=== PATIENT | female | born 1980 ===

== ENCOUNTER 2016-08-13 23:48 | Emergency (ER) | payer OTHER ==
[2016-08-14 00:06] VITALS: BMI 26.6
--- NOTE | 2016-08-14 00:09 | ED PDOC ---
Arrival/HPI - General Time Seen by Provider: 08/14/16 00:05 Historian: Patient - History of Present Illness Narrative History of Present Illness (Text): 08/14/16 00:05 This 36 yo female presents to this ED c/o right middle finger injury x [employer]. Patient stated during her working hours, her finger accidentally got caught in between a machine metal chain. She felt her finger made a "cracking sound". Last tetanus was 1 year ago. patient is right hand dominant. Denies other complains. Time/Duration: Prior to Arrival Quality: Aching Context: Home Past Medical History - Provider Review Nursing Documentation Reviewed: Yes Family/Social History - Physician Review Nursing Documentation Reviewed: Yes Family/Social History: No Known Family HX Allergies/Home Meds Allergies/Adverse Reactions: Allergies No Known Allergies Allergy (Verified 08/14/16 00:05) Review of Systems - Review of Systems Constitutional: Normal. absent: Fatigue, Weight Change, Fevers Eyes: Normal ENT: Normal Respiratory: Normal. absent: SOB, Cough Cardiovascular: Normal. absent: Chest Pain, Palpitations Gastrointestinal: Normal. absent: Abdominal Pain, Nausea, Vomiting Genitourinary Female: Normal. absent: Dysuria, Hematuria Musculoskeletal: Other (right middle finger injury) Skin: Normal Neurological: Normal Endocrine: Normal Hemo/Lymphatic: Normal Psychiatric: Normal Physical Exam Vital Signs Temp Pulse Resp BP Pulse Ox 08/14/16 00:13 98.7 F 74 17 109/70 100 Temperature: Afebrile Blood Pressure: Normal Pulse: Regular Respiratory Rate: Normal Appearance: Positive for: Well-Appearing, Non-Toxic, Comfortable Pain Distress: None Mental Status: Positive for: Alert and Oriented X 3 - Systems Exam Head: Present: Atraumatic, Normocephalic Pupils: Present: PERRL Extroacular Muscles: Present: EOMI Conjunctiva: Present: Normal Mouth: Present: Moist Mucous Membranes Neck: Present: Normal Range of Motion Upper Extremity: Present: NORMAL PULSES, Tenderness, Neurovascularly Intact, Capillary Refill < 2s, Other ((+) abrassion noted at mid rt 3rd finger). No: Cyanosis, Edema Lower Extremity: Present: Normal Inspection, CALF TENDERNESS, NORMAL PULSES, Normal ROM, Neurovascularly Intact, Capillary Refill < 2 s Neurological: Present: GCS=15, CN II-XII Intact, Speech Normal, Motor Func Grossly Intact, Normal Sensory Function, Normal Cerebellar Funct, Gait Normal Skin: Present: Warm, Dry, Normal Color. No: Rashes Psychiatric: Present: Alert, Oriented x 3 Medical Decision Making ED Course and Treatment: Re-evaluation. Patient feels better. Discussed results and plan with patient who expresses understanding. All questions answered and there is agreement with the plan to discharge home with instructions. Patient stable for discharge. Return if symptoms persist or worsen Re-evaluation Time: 01:10 Reassessment Condition: Re-examined, Improved - RAD Interpretation Narrative RAD Interpretations (Text): FINGER X-RAYS: no fracture or dislocation Radiology Orders: 08/14/16 00:07 HAND RIGHT 3RD DIGIT (FINGER) [RAD] Stat - Medication Orders Current Medication Orders: Discontinued Medications Bacitracin (Bacitracin) Confirm Administered Dose 1 ea .ROUTE .STK-MED ONE Stop: 08/14/16 01:06 Last Admin: 08/14/16 01:11 Dose: 1 ea Ibuprofen (Motrin Tab) 600 mg PO STAT STA Stop: 08/14/16 00:09 Last Admin: 08/14/16 00:37 Dose: 600 mg Disposition/Present on Arrival - Present on Arrival Any Indicators Present on Arrival: No History of DVT/PE: No History of Uncontrolled Diabetes: No Urinary Catheter: No History of Decub. Ulcer: No - Disposition Have Diagnosis and Disposition been Completed?: Yes Diagnosis: Finger contusion, Finger abrasion Disposition: HOME/ ROUTINE Disposition Time: 01:14 Patient Plan: Discharge Condition: GOOD Discharge Instructions (ExitCare): Jammed Finger (ED) Additional Instructions: Call private doctor for follow up visit in 1-2 days. Clean wound daily with soap and water. Take antibiotic as instructed. Return to emergency if symptoms worsen of if wound becomes infected. Llame a quintana doctor para seguimiento medico. Lave la herida diariamente. Cyrus antibiotico awilda alvarez sido recommendedado, regrese si herida se infecta Llame a Worker Comp Prescriptions: Cephalexin [Keflex] 500 mg PO QID #28 capsule Referrals: [facility] [Outside] - Follow up with primary [facility] [Outside] - Follow up with primary Forms: WORK NOTE
[2016-08-14 00:13] VITALS: BP 109/70; PULSE 74; RESP 17; TEMP 98.7; O2SAT 100
[2016-08-14] MEDS ORDERED: Bacitracin 500 Units/gm Oint Foilpak UD ONE (01:05)
--- NOTE | 2016-08-14 08:55 | RAD ---
PROCEDURE: Right middle finger radiographs. HISTORY: pain r/o fracture COMPARISON: None. TECHNIQUE: AP radiograph of the right hand, as well as spot oblique and lateral images of right middle finger were obtained. FINDINGS: RIGHT MIDDLE FINGER: Right middle finger normal, without fracture of focal lesion. Remainder of the right hand (as seen on the AP view) grossly unremarkable. JOINTS: Normal. SOFT TISSUES: Normal. OTHER FINDINGS: None. IMPRESSION: No evidence of acute displaced fracture or dislocation.
== END 2016-08-14 01:30 | disposition home or self-care (01) ==
LOC: ED 23:48
DX: S60.031A Contusion of right middle finger without damage to nail, initial encounter (principal); W31.89XA Contact with other specified machinery, initial encounter; Y93.89 Activity, other specified; Y92.69 Other specified industrial and construction area as the place of occurrence of the external cause; Y99.8 Other external cause status